=== PATIENT | male | born 2005 ===

== ENCOUNTER 2025-07-09 20:34 | Emergency (ER) | payer SELFPAY ==
--- NOTE | ~2025-07-09 | CT_ITS ---
CLINICAL HISTORY: head trauma CT head without contrast Comparison: None provided Findings: Mild motion artifacts. No intra-axial mass, midline shift, hydrocephalus, or acute hemorrhage. No significant atrophy-like change or white matter disease. Mild mucosal thickening in the sinuses. No fluid levels. The orbits are within normal limits. No skull fracture. IMPRESSION: No acute findings within the limitations of motion artifact. This document has been electronically signed by: Nemesio Moore MD on 07/09/2025 22:25:20
--- NOTE | ~2025-07-09 | CT_ITS ---
CLINICAL HISTORY: neck trauma CT cervical spine without contrast Comparison: None provided Findings: Vertebral alignment is within normal limits. No arthritic change or stenotic disease. No acute fractures or dislocations. No acute findings on limited view of the intracranial contents. No cervical fluid collections or masses. Lung apices are clear. IMPRESSION: No acute findings. This document has been electronically signed by: Nemesio Moore MD on 07/09/2025 22:24:27
[2025-07-09 20:57] VITALS: BP 122/79; BP 148/66; PULSE 124; PULSE 139; RESP 18; TEMP 36.1; O2SAT 97; O2SAT 99; BMI 19.4
--- NOTE | 2025-07-09 20:59 | ED.GENADULT ---
HPI - General Adult General Chief complaint: Fall Stated complaint: Multiple falls, HS pain in c-spine refused collar Time Seen by Provider: 07/09/25 20:56 Source: patient Mode of arrival: ambulatory Limitations: no limitations History of Present Illness ED Provider: Dr. Rutherford [facility] narrative: 19-year-old male presenting to ER today after being found down in the parking lot. According to EMS patient was in a salazar chopsticks try to get piercings. Patient is refusing C-collar, patient stated that he hit his head against the cement twice. Patient was unable to provide a clear history. Patient appears to be intoxicated on my exam. Patient does have abrasion over the right elbow area. Appears nauseous. Related Data Allergies Allergy/AdvReac Type Severity Reaction Status Date / Time No Known Allergies Allergy Verified 07/09/25 21:02 Review of Systems Review of Systems: Pertinent review of systems as mentioned in HPI. All other system otherwise negative. PMFSH Past Medical History PMF Narrative: Medical history as mentioned in HPI Social History Social History Unable to assess alcohol history related to: Refusing to respond Use of substances other than those prescribed or required for medical reasons: Refusing to respond Advance Directives: No Advance Directives Information Provided: No Physical Exam ED Exam Exam: General: The patient appears to be intoxicated Head: Normacephalic, no sign of trauma on his head on exam ENT: oral mucosa moist, neck supple, no tracheal deviation Cardiovascular: regular rate, regular rhythm, no murmurs, rubbing, gallops Respiratory: CTAB, no wheeze, rales, rhonchi Gastrointestinal: Soft, non distended, non tender, non guarding Extremities: Abrasion over his right elbow Neurological: Awake and alert, no facial droop noted, rotary nystagmus appreciated on exam, patient does have sensation bilaterally, able to move upper and lower extremities without any issues. Patient is able to ambulate Skin: Warm and dry Psychiatric: Appropriate mood and thoughts Vital Signs: Vital Signs - 24 hr 07/09/25 20:57 07/09/25 22:32 07/09/25 22:32 Temperature 97 F Pulse Rate 139 H 129 H Respiratory Rate 18 16 18 Blood Pressure 122/79 129/78 Pulse Oximetry 97 98 Oxygen Delivery Method Nasal Cannula Room Air BMI result Body Mass Index 19.4 Medications Administered Discontinued Medications Generic Name Dose Route Start Last Admin Trade Name Freq PRN Reason Stop Dose Admin Sodium Chloride 1,000 mls @ 999 mls/hr 07/09/25 21:00 07/09/25 22:48 Ns IV 07/09/25 22:00 Infused .Q1H1M SEBASTIEN Infusion Ondansetron HCl 4 mg 07/09/25 20:57 07/09/25 21:19 Ondansetron Hcl 4 Mg/2 Ml Vial IVPUSH 07/09/25 20:58 4 mg ONCE ONE Administration Medical Decision Making Medical Decision Making [facility] Narrative: This is a 19-year-old male presented hospital today after being found down in the parking lot. I suspect patient is intoxicated. The patient is endorsing head trauma we will obtain a CT head and CT C-spine at this time. Appears to have full range of motion of his right upper extremity. He does have an abrasion of the right elbow area. CMS intact. We will obtain to obtain U tox. Ethanol level Tylenol level salicylate level for the patient. Basic lab work will be obtained as well. Patient will be signed out to oncoming provider. 09:53 PM 07/09/2025 (Dr. Chacha Toscano, D.O.) assumed care from previous provider pending CT results and final disposition. Patient continues to rest comfortably. No focal neurologic deficits aside from rotatory nystagmus. 11:43 PM 07/09/2025 (Dr. Chacha Toscano, D.O.) CTs are negative for acute traumatic process. Patient is up-to-date on his tetanus.Patient's mother is now at bedside. Reports longstanding history of alcohol use disorder. Patient is not currently able to make a decision about rehab. Mom is willing and comfortable taking him home tonight. Discussed treatment options and importance of follow up. Discharged in stable condition. Differential Diagnosis Differential Diagnoses: The differential diagnosis associated with the presentation includes Intoxication, PCP use, marijuana use, polysubstance abuse Admission/Observation Consideration of admission/observation: Escalation of care including admission/observation considered Lab Data [facility] Lab Attestation statement: I reviewed the patient's lab results. 07/09/25 21:16 07/09/25 21:16 Labs: Lab Results 07/09/25 07/09/25 07/09/25 Range/Units 21:15 21:16 22:11 WBC 8.6 (4.8-10.8) X10*3/uL RBC 6.32 H (4.60-5.80) X10*6/uL Hgb 19.0 H (14.0-18.0) g/dl Hct 53.5 H (42.0-52.0) % MCV 84.7 (80.0-98.0) fL MCH 30.1 (27.0-33.0) pg MCHC 35.5 (31.0-36.0) g/dl RDW 12.1 (11.0-16.0) % Plt Count 242 (160-400) X10*3/uL MPV 9.3 L (9.4-12.4) fL Immature Gran % (Auto) 0.1 (0.0-0.4) % Neut % (Auto) 65.6 (45-73) % Lymph % (Auto) 25.8 (20-40) % [place] % (Auto) 5.8 (2-11) % Eos % (Auto) 2.4 (0-4) % Baso % (Auto) 0.3 (0-2) % Lymph # (Auto) 2.2 (1.2-4.9) X10*3/uL [place] # (Auto) 0.5 (0.1-1.2) X10*3/uL Eos # (Auto) 0.2 (0.0-0.4) X10*3/uL Baso # (Auto) 0.0 (0.0-0.2) X10*3/uL Abs Immat Gran (auto) 0.01 (0.00-0.03) X10*3/uL Absolute Neuts (auto) 5.7 (2.0-8.3) x10*3/uL Absolute Nucleated RBC 0.000 (0.0-0.012) X10*3/uL Nucleated RBC % (auto) 0.0 (0.0-0.2) /100WBC Sodium 147 H (135-145) mmol/L Potassium 3.9 (3.3-5.1) mmol/L Chloride 107 (96-108) mmol/L Carbon Dioxide 28 (22-29) mmol/L Anion Gap 16 (12-20) BUN 10 (9-16) mg/dL Creatinine 0.83 (0.5-1.4) mg/dL Estim Creat Clear Calc 123.9 Estimated GFR > 60 Random Glucose 109 (60-115) mg/dL Calcium 9.8 (8.4-10.2) mg/dL Salicylates < 5.0 L (15-30) mg/dL Urine Opiates Screen Not Detected (Not Detect) Ur Buprenorphine Scrn Not Detected (Not Detect) ng/mL Ur Oxycodone Screen Not Detected (Not Detect) ng/mL Urine Methadone Screen Not Detected (Not Detect) ng/mL Urine Fentanyl Screen Not Detected (Not Detect) Acetaminophen < 3 (<30) mcg/mL Ur Barbiturates Screen Not Detected (Not Detect) Ur Phencyclidine Scrn Not Detected (Not Detect) Ur Amphetamines Screen Not Detected (Not Detect) U Benzodiazepines Scrn Not Detected (Not Detect) Urine Cocaine Screen Not Detected (Not Detect) U Marijuana (THC) Screen Not Detected (Not Detect) Ethyl Alcohol 394 H* mg/dL Radiology Impression Discussion of test interpretation with radiology: I have reviewed the radiologist's reading. Independent Historian Clinical information obtained from an independent historian. History obtained from or confirmed by: Parent and EMS Chronic Conditions Patient?s care impacted by: Other (alcohol use disorder) Social Determinants Patient?s care significantly limited by Social Determinants of Health including: Other Social Determinant of Health Discharge Plan Discharge Clinical Impression: Acute alcohol intoxication delirium with moderate or severe use disorder, Ground-level fall, Abrasion of right elbow, initial encounter Patient Disposition: Home, Self-Care Instructions: Alcohol Use Disorder (ED) Additional Instructions: Alcohol use disorder You were seen in the Emergency Department today for treatment of alcohol use disorder.? You may have been given medications to help with your withdrawal symptoms.? Please do not drink alcohol with them. This is very dangerous and can cause respiratory depression or other adverse reactions depending on the medication. If you would like to cut down or stop your alcohol use please consider calling our outpatient Addiction Treatment office:? [facility] (M-F [id number]) [address] [place] [id number] You have also been given a list of treatment providers in the area that can assist as well.? If you experience seizures, vomiting blood, black stools, falls, severe headache, chest pain, fevers, trouble breathing, hallucinations or any other concerns you need to call 911 or seek immediate care. Please stay hydrated. You can return to the emergency department at any time and for any reason. We are here to help you and we never close. Print Language: Choose Not To Answer
[2025-07-09 21:21] LABS: MANUAL DIFF FLAG NO
[2025-07-09 21:24] LABS: Hematocrit 53.5 % (42.0-52.0); Hemoglobin 19.0 g/dl (14.0-18.0); Imm Gran Abs Auto 0.01 X10*3/uL (0.00-0.03); Imm Gran Pct Auto 0.1 % (0.0-0.4); Lymphocytes Absolute Auto 2.2 X10*3/uL (1.2-4.9); Mean Corpuscular HGB Conc 35.5 g/dl (31.0-36.0); Mean Corpuscular Hemoglobin 30.1 pg (27.0-33.0); Mean Corpuscular Volume 84.7 fL (80.0-98.0); NRBC Abs Auto 0.000 X10*3/uL (0.0-0.012); NRBC Pct Auto 0.0 /100WBC (0.0-0.2); Platelet Count 242 X10*3/uL (160-400); Red Blood Count 6.32 X10*6/uL (4.60-5.80); White Blood Count 8.6 X10*3/uL (4.8-10.8)
[2025-07-09 21:38] LABS: Anion Gap 16 (12-20); Blood Urea Nitrogen 10 mg/dL (9-16); Calcium 9.8 mg/dL (8.4-10.2); Carbon Dioxide 28 mmol/L (22-29); Chloride 107 mmol/L (96-108); Creatinine Clr Calc Pharmacy 123.9; Estimated Glomerular Filt Rate > 60; Potassium 3.9 mmol/L (3.3-5.1); Sodium 147 mmol/L (135-145)
[2025-07-09 22:01] LABS: Acetaminophen LAB < 3 mcg/mL (<30); Salicylate < 5.0 mg/dL (15-30)
[2025-07-09 22:31] LABS: Cannabinoid Screen Urine Not Detected (Not Detect)
[2025-07-09 22:32] VITALS: BP 129/78; PULSE 129; RESP 16; RESP 18; O2SAT 98
--- NOTE | 2025-07-09 22:40 | PC.NURSE ---
Patient pulled out his IV.
--- NOTE | 2025-07-09 22:46 | PC.NURSE ---
Patient attempted to leave ED, ambulatory w/ steady gait walking towards exit. easily redirectable by staff, patient stretcher moved within view of staff w/ sitter near by.
--- NOTE | 2025-07-09 23:03 | PC.NURSE ---
patient changed over into green gown and belongings secured
--- NOTE | 2025-07-09 23:07 | MHC.EDTECH ---
Changed over Pt with security in the bathroom. Pt was very instead due to high level of ETOH. Pt still has 3 rings on that i let the RN be aware of. Everything else in the [facility] port shelf 2
[2025-07-10 00:08] VITALS: BP 116/72; PULSE 118; RESP 16; TEMP 36.6; O2SAT 95
== END 2025-07-10 00:09 | disposition home or self-care (01) ==
PROVIDERS: Student in an Organized Health Care Education/Training Program; Emergency Provider Emergency Medicine
DX: S50.311A Abrasion of right elbow, initial encounter (principal); F10.121 Alcohol abuse with intoxication delirium; Y90.8 Blood alcohol level of 240 mg/100 ml or more; R51.9 Headache, unspecified; M54.2 Cervicalgia; X58.XXXA Exposure to other specified factors, initial encounter; Y93.9 Activity, unspecified; Y92.9 Unspecified place or not applicable; Y99.8 Other external cause status; Z51.81 Encounter for therapeutic drug level monitoring; Z79.899 Other long term (current) drug therapy; Z71.41 Alcohol abuse counseling and surveillance of alcoholic
CPT/HCPCS: 36415; 70450; 72125; 80048; 80143; 80179; 80307; 85025; 96361; 96374; 99284; J2405

== ENCOUNTER → 2025-07-09 20:57 | Outpatient (BNV) | payer SELFPAY | PROVIDERS: Emergency Provider Emergency Medicine; Visit Provider Radiology Diagnostic Radiology | DX: S19.9XXA Unspecified injury of neck, initial encounter (principal); S09.90XA Unspecified injury of head, initial encounter; W19.XXXA Unspecified fall, initial encounter | CPT/HCPCS: 70450; 72125 ==